=== PATIENT | female | born 1955 | race Caucasian/White ===

== ENCOUNTER 2021-07-22 13:28 | Observation (INO) | payer BC, OTHER ==
[2021-07-22 14:09] LABS: #Eosinphils 0.2 thou/uL (0.0-0.7); #Lymphocytes 0.9 thou/uL (1.20-3.40); #Monocytes 0.4 thou/uL (0.11-0.59); #Neutrophils 3.9 thou/uL (1.40-6.50); %Basophils 0.7 % (0.0-1.0); %Eosinophils 2.8 % (0.0-10.0); %Lymphocytes 16.5 % (21.0-51.0); %Monocytes 7.2 % (0.0-10.0); %Neutrophils 72.9 % (42.0-75.0); Hemoglobin 13.6 g/dL (12.0-16.0); Mean Corpuscular HGB CONC 33.5 g/dL (32.0-36.0); Mean Corpuscular Hemoglobin 30.2 pg (27.0-31.0); Mean Corpuscular Volume 90.2 fL (78.0-98.0); Mean Platelet Volume 8.5 fL (7.4-10.4); Platelet Count 194 thou/uL (130-400); RBC Distribution Width 12.3 % (11.5-14.5); Red Blood Cell (RBC) Count 4.49 mill/uL (4.20-5.40); White Blood Cell (WBC) Count 5.4 thou/uL (4.8-10.8)
[2021-07-22 14:31] LABS: ALT (SGPT) 16 U/L (8-55); AST (SGOT) 24 U/L (5-34); Albumin 4.1 g/dL (3.4-4.8); Alkaline Phosphatase 82 U/L (40-110); Anion Gap 15 mmol/L (10-20); BUN (Urea Nitrogen) 26 mg/dL (9.8-20.1); Bilirubin, Total 0.8 mg/dL (0.2-1.2); Calc. Creatinine Clearance 0 mL/min (70-130); Calcium 9.7 mg/dL (7.8-10.44); Carbon Dioxide 22 mmol/L (23-31); Chloride 103 mmol/L (98-107); Globulin 2.8 g/dL (2.4-3.5); Glucose 117 mg/dL (80-115); Potassium 4.1 mmol/L (3.5-5.1); Protein, Total 6.9 g/dL (5.8-8.1); Sodium 136 mmol/L (136-145)
[2021-07-22] MEDS ORDERED: Nitroglycerin 2% Ointment 1 INCH/1 GM Packet ONE (19:05)
[2021-07-22 19:57] LABS: Troponin I Less than 0.010 ng/mL (< 0.028)
[2021-07-22] MEDS ORDERED: Ondansetron PF 4 MG/2 ML Vial IVP PRN (20:30)
[2021-07-22] MEDS ORDERED: Ondansetron ODT 4 MG TAB SL PRN (20:30)
[2021-07-22] MEDS: Acetaminophen 325 MG TAB PO PRN (20:33)
[2021-07-22 20:44] VITALS: BMI 25.0
[2021-07-22] MEDS ORDERED: cloNIDine 0.1 MG TAB PO SCH (21:15)
[2021-07-22] MEDS ORDERED: Promethazine HCl 12.5 MG in Sodium Chloride 0.9% 50 ML IVPB SCH (21:30)
[2021-07-22] MEDS ORDERED: Labetalol HCl 100 MG/20 ML VIAL SLOW IVP SCH (22:16)
[2021-07-22 22:18] LABS: Troponin I Less than 0.010 ng/mL (< 0.028)
[2021-07-22] MEDS ORDERED: Bisacodyl 5 MG TAB PO PRN (23:34)
[2021-07-22] MEDS ORDERED: Senokot S 8.6-50 MG TAB PO PRN (23:34)
[2021-07-22] MEDS ORDERED: hydrALAZINE 20 MG/ML VIAL SLOW IVP PRN (23:41)
[2021-07-22] MEDS ORDERED: Melatonin 3 MG TAB PO PRN (23:44)
[2021-07-22] MEDS ORDERED: Sodium Chloride 0.9% 1,000 ML IV SCH (23:45)
[2021-07-22] MEDS ORDERED: Heparin 5,000 UNITS/ML VIAL SC SCH (23:59)
[2021-07-23 00:34] LABS: Troponin I Less than 0.010 ng/mL (< 0.028)
[2021-07-23 03:34] LABS: Troponin I Less than 0.010 ng/mL (< 0.028)
[2021-07-23] MEDS: Acetaminophen 325 MG TAB PO PRN (04:01)
[2021-07-23 05:52] LABS: #Lymphocytes 0.8 thou/uL (1.20-3.40); #Monocytes 0.3 thou/uL (0.11-0.59); #Neutrophils 2.6 thou/uL (1.40-6.50); %Basophils 0.3 % (0.0-1.0); %Eosinophils 0.1 % (0.0-10.0); %Lymphocytes 22.1 % (21.0-51.0); %Monocytes 6.8 % (0.0-10.0); %Neutrophils 70.7 % (42.0-75.0); Mean Corpuscular HGB CONC 34.3 g/dL (32.0-36.0); Mean Corpuscular Hemoglobin 30.5 pg (27.0-31.0); Mean Corpuscular Volume 89.1 fL (78.0-98.0); Platelet Count 209 thou/uL (130-400); RBC Distribution Width 12.2 % (11.5-14.5); Red Blood Cell (RBC) Count 3.94 mill/uL (4.20-5.40); White Blood Cell (WBC) Count 3.7 thou/uL (4.8-10.8)
[2021-07-23] MEDS ORDERED: Levothyroxine Sodium 75 MCG TAB PO SCH (06:00)
[2021-07-23 06:27] LABS: ALT (SGPT) 12 U/L (8-55); AST (SGOT) 17 U/L (5-34); Albumin 3.5 g/dL (3.4-4.8); Alkaline Phosphatase 73 U/L (40-110); Anion Gap 12 mmol/L (10-20); BUN (Urea Nitrogen) 20 mg/dL (9.8-20.1); Bilirubin, Total 0.4 mg/dL (0.2-1.2); Calc. Creatinine Clearance 53 mL/min (70-130); Calcium 9.1 mg/dL (7.8-10.44); Carbon Dioxide 24 mmol/L (23-31); Chloride 103 mmol/L (98-107); Globulin 2.6 g/dL (2.4-3.5); Glucose 125 mg/dL (80-115); Potassium 3.4 mmol/L (3.5-5.1); Protein, Total 6.1 g/dL (5.8-8.1); Sodium 136 mmol/L (136-145)
[2021-07-23 07:31] LABS: Cardiac Risk 2.7 (Less than 4.5)
[2021-07-23 08:21] VITALS: TEMP 98
[2021-07-23] MEDS ORDERED: Lisinopril 20 MG TAB PO SCH (09:00)
[2021-07-23] MEDS ORDERED: Non-Formulary Item 1 EACH (Lisinopril [Lisinopril] 40 MG Tablet) PO SCH (09:00)
[2021-07-23] MEDS ORDERED: Famotidine/PF 20 mg/2ml Vial SLOW IVP SCH (09:00)
[2021-07-23] MEDS ORDERED: Aspirin Chewable 81 MG TAB PO SCH (09:00)
[2021-07-23] MEDS ORDERED: Chlorthalidone 25 MG TAB PO SCH (09:00)
[2021-07-23] MEDS ORDERED: ADENOSINE 60 MG/20 ML VIAL ONE (09:03)
[2021-07-23 12:24] LABS: SARS-CoV-2 PCR by NAA Not Detected (NotDetected)
[2021-07-23] MEDS: Heparin 5,000 UNITS/ML VIAL SC SCH ×2 (15:40→18:37)
[2021-07-23 15:41] VITALS: BP 163/80
[2021-07-23] MEDS ORDERED: Atorvastatin Calcium 40 MG TAB PO SCH (21:00)
== END 2021-07-23 17:54 | disposition home or self-care (01) ==
LOC: ERS 13:28 → EEVIPCON 18:56 → 2SW 18:56
PROVIDERS: ADMIT Family Medicine; ATTEND Internal Medicine
DX: R07.89 Other chest pain (principal); I10 Essential (primary) hypertension; E03.9 Hypothyroidism, unspecified; N17.9 Acute kidney failure, unspecified; I08.8 Other rheumatic multiple valve diseases; Z79.899 Other long term (current) drug therapy; Z88.5 Allergy status to narcotic agent; Z20.822 Contact with and (suspected) exposure to COVID-19
CPT/HCPCS: 36415; 71045; 78452; 80053; 80061; 84443; 84484; 85025; 93005; 93010; 93017; 93306; 96374; 96375; A9500; G0378; J0153; J1644; J2405; J2550; J7050; U0003; U0005

== ENCOUNTER 2023-09-13 12:33 | Outpatient (CLI) | payer BC | END 2023-09-13 12:34 | disposition home or self-care (01) | LOC: BICRAD 12:33 | PROVIDERS: ATTEND Family Medicine | DX: M79.601 Pain in right arm (principal) ==